=== PATIENT | male | born 1990 | race Hispanic/Latino ===

== ENCOUNTER 2018-07-18 00:44 | Emergency (ER) | payer SELFPAY ==
[2018-07-18] MEDS ORDERED: TETRACAINE 0.5% OU PRN (03:11)
[2018-07-18] MEDS ORDERED: FUL-GLO OP ONE (03:13)
--- NOTE | 2018-07-18 04:31 | Emergency Department Report ---
ED Eye Problem HPI - General Chief complaint: Eye Problems Stated complaint: EYE IRRITATION Time Seen by Provider: 07/18/18 03:51 Source: patient, family Mode of arrival: Ambulatory Limitations: No Limitations - History of Present Illness Initial comments: This 28-year-old male patient here reported that she is having redness swelling and drainage and irritation to the right eye. He said it started at work with metal blind in his right eye. He said he was wearing goggles. He reports his rinse his eye out at work but it did not get any better. He reports that it is irritated and an pain is 2/10 worse with blinking. Minimal foreign body sensation and denies wearing contacts. Denies any fever or chills or any nasal congestion. Denies waking up this morning with eyes matted. Denies any cough, nasal congestion or runny nose. Denies any sore throat. Denies any shortness of breath or chest pain or any blunt trauma to the eyes. 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/ Eye Symptoms: burning, redness, pain, foreign body sensation, other (foreign body sensation with blinking) Severity: mild Severity scale (0 -10): 2 If Pain, Quality: burning (irritated) Consistency: constant Context: injury Associated Symptoms: denies: headache, neck pain, nausea/vomiting, cough, rhinorrhea, fever, shortness of breath Treatments Prior to Arrival: irrigated eye - Related Data Patient Tetanus UTD: Yes (4 years ago) Previous Rx's Medication Instructions Recorded Last Taken Type Gentamicin 0.3% Ophth Soln 2 drops OD Q6H 7 Days #1 bottle 07/18/18 Unknown Rx Ibuprofen [Motrin] 800 mg PO Q8HR PRN #12 tablet 07/18/18 Unknown Rx Allergies Allergy/AdvReac Type Severity Reaction Status Date / Time Penicillins Allergy Anaphylaxis Verified 07/18/18 00:56 pistachio nut Allergy Hives Verified 07/18/18 00:56 ED Review of Systems ROS: Stated complaint: EYE IRRITATION Other details as noted in HPI Constitutional: denies: chills Eyes: eye pain, eye discharge, other (eye redness and irritation after injury at work). denies: vision change ENT: denies: ear pain, throat pain, dental pain, epistaxis, congestion Respiratory: denies: cough, shortness of breath, wheezing Cardiovascular: denies: chest pain, palpitations, edema, syncope Gastrointestinal: denies: nausea, vomiting Musculoskeletal: denies: back pain, arthralgia, myalgia Skin: denies: rash Neurological: denies: headache, vertigo ED Past Medical Hx - Past Medical History Previous Medical History?: No - Surgical History Past Surgical History?: Yes Additional Surgical History: Left Knee surgery when 12 years old - Family History Family history: hypertension - Social History Smoking Status: Current Every Day Smoker Substance Use Type: None - Medications Home Medications: Home Medications Medication Instructions Recorded Confirmed Last Taken Type Gentamicin 0.3% Ophth Soln 2 drops OD Q6H 7 Days #1 bottle 07/18/18 Unknown Rx Ibuprofen [Motrin] 800 mg PO Q8HR PRN #12 tablet 07/18/18 Unknown Rx ED Physical Exam - General Limitations: No Limitations General appearance: alert, in no apparent distress - Head Head exam: Present: atraumatic, normocephalic, normal inspection, other (normal exam) - Eye Eye exam: Present: PERRL, EOMI, conjunctival injection (right), other (mild swelling below right eye lid with mild erythema. No induration or fluctuance patient reports that he was rubbing area). Absent: normal appearance, scleral icterus, nystagmus, periorbital swelling, periorbital tenderness Pupils: Present: normal accommodation, other (right corneal abrasion noted under Wood's lamp examination) - Expanded Eye Exam Expanded Eyelids: Normal Inspection: Left (bilateral) Pupils: Regular, Round: Bilateral, Reactive: Bilateral Sclera/Conjunctival: Normal Inspection: Left, Injection: Right Anterior chamber: Normal Inspection: Bilateral Posterior chamber: Normal Inspection: Bilateral Visual acuity (R) = 20/: 40 Visual acuity (L) = 20/: 30 (20/25 both eyes) With correction: No IOP measured with: other (positive fluorescein uptake) - ENT ENT exam: Present: normal exam, normal orophraynx, mucous membranes moist, TM's normal bilaterally, normal external ear exam - Neck Neck exam: Present: normal inspection, full ROM, other (no C-spine tenderness). Absent: tenderness, lymphadenopathy - Respiratory Respiratory exam: Present: normal lung sounds bilaterally. Absent: respiratory distress, chest wall tenderness - Cardiovascular Cardiovascular Exam: Present: regular rate, normal rhythm, normal heart sounds - GI/Abdominal GI/Abdominal exam: Present: soft, normal bowel sounds ( remaining pretty proactive though she is very). Absent: distended (the), tenderness, rigid ( very much so I get here other than), organomegaly, mass, bruit, pulsatile mass - Extremities Exam Extremities exam: Present: normal inspection, full ROM, normal capillary refill, other (No cce. + 2 pulses in all extremities, no neurovascular compromise). Absent: tenderness, pedal edema, joint swelling - Back Exam Back exam: Present: normal inspection, full ROM, other (ambulates without any difficulties) - Neurological Exam Neurological exam: Present: alert, oriented X3, normal gait - Psychiatric Psychiatric exam: Present: normal affect, normal mood - Skin Skin exam: Present: warm, dry, intact, normal color - Other Other exam information: Ramsay lamp examination Patient with right eye injury and eye examined under Wood lamp. 2 drops of tetracaine ointment instilled into right eye followed by fluorescein stain and right eye examine under Wood lamp and noted very small corneal abrasion to the cornea close to right inner canthus of eye. Positive for a stain uptake. His tetanus shot is up-to-date. I flushed with sterile water and patient's that his eye pain is gone. He tolerated procedure well. ED Course Vital Signs 07/18/18 07/18/18 00:51 00:59 Temperature 99.0 F 99.0 F Pulse Rate 95 H 96 H Respiratory 18 18 Rate Blood Pressure 158/97 158/97 O2 Sat by Pulse 98 98 Oximetry - Reevaluation(s) Reevaluation #1: 07/18/18 05:21 Patient given Motrin 800 mg by mouth which relieved pain. ED Medical Decision Making - Medical Decision Making This is a 28-year-old male came to the hospital because he said that he had injury to his right eye although he was wearing his goggles he thinks he had some metal in his eye. Patient had right eye examined under Ramsay lamp with flu orescein stain and. Please see notes in examination section for detail on procedure. Patient had normal funduscopic exam bilaterally but he has small right corneal abrasion. I discussed my findings along with treatment plan a medication patient. He was given Motrin 800 mg in the ER which helped his pain. Patient is stable and visual acuity done and please see notes for detail. I discussed the patient needs to follow-up with car mechanic in 2-3 days or sooner if his vision decline. He voiced understanding. Patient given prescription for gentamicin ophthalmic ointment and to stay out of work for 2 days and to wear eye patch if he gets sensitivity to light. He voiced understanding. - Differential Diagnosis uveitis, iritis, corneal abrasion, conjunctivitis, viral VS bacterial Critical care attestation.: If time is entered above; I have spent that time in minutes in the direct care of this critically ill patient, excluding procedure time. ED Disposition Clinical Impression: Corneal abrasion, right Qualifiers: Encounter type: initial encounter Qualified Code(s): S05.01XA - Injury of conjunctiva and corneal abrasion without foreign body, right eye, initial encounter Conjunctivitis Qualifiers: Conjunctivitis type: other Laterality: right Qualified Code(s): H10.89 - Other conjunctivitis Disposition: DC- TO HOME OR SELFCARE Is pt being admited?: No Does the pt Need Aspirin: No Condition: Stable Instructions: Corneal Abrasion (ED), Conjunctivitis (ED) Additional Instructions: Please instill eyedrops in right eye every 6 hours as instructed. Follow-up with car mechanic in 2-3 days or sooner if eyesight decline. You can word dark glasses or eye patch to prevent light sensitivity. Take Motrin for pain. Referrals: FERNANDA WORRELL [Primary Care Provider] - 2-3 Days KATHARINA CABRERA MD [Staff Physician] - 2-3 Days Your, primary care physician [Other] - 2-3 Days Forms: Work/School Release Form(ED)
[2018-07-18] MEDS ORDERED: IBUPROFEN PO ONE (04:32)
[2018-07-18 05:37] VITALS: BP 132/74
== END 2018-07-18 05:35 | disposition home or self-care (01) ==
LOC: ED 00:44
DX: S05.01XA Injury of conjunctiva and corneal abrasion without foreign body, right eye, initial encounter (principal); H10.89 Other conjunctivitis; F17.200 Nicotine dependence, unspecified, uncomplicated; X58.XXXA Exposure to other specified factors, initial encounter; Y93.89 Activity, other specified; Y92.89 Other specified places as the place of occurrence of the external cause; Y99.8 Other external cause status

== ENCOUNTER 2018-08-11 11:52 | Emergency (ER) | payer SELFPAY ==
[2018-08-11 12:40] VITALS: BP 160/73
--- NOTE | 2018-08-11 12:43 | Emergency Department Report ---
Blank Doc - Documentation Documentation: Pt c/o right sided facial pain and swelling that began this morning. He states he feels warm but has not taken his temperature. Pt has multiple dental carries. He denies any PMHx. This initial assessment diagnostic orders/clinical plan/treatment (s) is/Are subject change based on patient's health status, clinical progression and re- assessment by fellow clinical providers in the ED. Further treatment and work-up at subsequent clinical providers discretion. Patient/guardians urged not to elope from their condition may be serious if not clinically assessed and managed. Initial order include: rapid strep
[2018-08-11] MEDS ORDERED: MOTRIN PO ONE (12:46)
--- NOTE | 2018-08-11 13:04 | Emergency Department Report ---
ED General Adult HPI - General Chief complaint: Pain General Stated complaint: RT SIDE PAIN Time Seen by Provider: 08/11/18 12:39 Source: patient Mode of arrival: Ambulatory Limitations: No Limitations - History of Present Illness Initial comments: Patient is a 28-year-old gentleman who is complaining of right lower jaw pain. Swelling is present for the last 2 days. The patient has a history of very poor dentition. Persistent pain is 8 out of 10 in severity and is throbbing and aching. She denies any fevers chills nausea vomiting at this time Severity scale (0 -10): 10 - Related Data Previous Rx's Medication Instructions Recorded Last Taken Type Gentamicin 0.3% Ophth Soln 2 drops OD Q6H 7 Days #1 bottle 07/18/18 Unknown Rx Ibuprofen [Motrin] 800 mg PO Q8HR PRN #12 tablet 07/18/18 Unknown Rx Allergies Allergy/AdvReac Type Severity Reaction Status Date / Time Penicillins Allergy Anaphylaxis Verified 08/11/18 12:38 pistachio nut Allergy Hives Verified 08/11/18 12:38 ED Review of Systems ROS: Stated complaint: RT SIDE PAIN Other details as noted in HPI Comment: All other systems reviewed and negative ED Past Medical Hx - Past Medical History Previous Medical History?: No - Surgical History Past Surgical History?: No Additional Surgical History: Left Knee surgery when 12 years old - Social History Smoking Status: Current Every Day Smoker - Medications Home Medications: Home Medications Medication Instructions Recorded Confirmed Last Taken Type Gentamicin 0.3% Ophth Soln 2 drops OD Q6H 7 Days #1 bottle 07/18/18 Unknown Rx Ibuprofen [Motrin] 800 mg PO Q8HR PRN #12 tablet 07/18/18 Unknown Rx ED Physical Exam - General Limitations: No Limitations General appearance: alert, in no apparent distress - Head Head exam: Present: atraumatic, normocephalic - Eye Eye exam: Present: normal appearance, PERRL, EOMI - ENT ENT exam: Present: mucous membranes moist, other (patient has very poor dentition but also has a very necrotic tooth #30. Patient has some firmness to the jaw just below this tooth consistent with a dental abscess and facial cellulitis.) - Neck Neck exam: Present: normal inspection - Respiratory Respiratory exam: Present: normal lung sounds bilaterally. Absent: respiratory distress - Cardiovascular Cardiovascular Exam: Present: regular rate, normal rhythm. Absent: systolic murmur, diastolic murmur, rubs, gallop - GI/Abdominal GI/Abdominal exam: Present: soft, normal bowel sounds - Rectal Rectal exam: Present: deferred - Extremities Exam Extremities exam: Present: normal inspection - Back Exam Back exam: Present: normal inspection - Neurological Exam Neurological exam: Present: alert, oriented X3 - Psychiatric Psychiatric exam: Present: normal affect, normal mood - Skin Skin exam: Present: warm, dry, intact, normal color. Absent: rash ED Course Vital Signs 08/11/18 12:38 Temperature 98.2 F Pulse Rate 94 H Respiratory 18 Rate Blood Pressure 160/73 O2 Sat by Pulse 97 Oximetry ED Medical Decision Making - Medical Decision Making She started on antibiotics will be discharged home. Critical care attestation.: If time is entered above; I have spent that time in minutes in the direct care of this critically ill patient, excluding procedure time. ED Disposition Clinical Impression: Dental abscess, Facial cellulitis Disposition: DC- TO HOME OR SELFCARE Is pt being admited?: No Does the pt Need Aspirin: No Condition: Stable Instructions: Dental Abscess (ED) Referrals: DONTE LOONEY MD [Primary Care Provider] - 3-5 Days Time of Disposition: 13:04
== END 2018-08-11 13:28 | disposition home or self-care (01) ==
LOC: ED 11:52
DX: K04.7 Periapical abscess without sinus (principal); L03.211 Cellulitis of face; F17.200 Nicotine dependence, unspecified, uncomplicated; Z88.1 Allergy status to other antibiotic agents; Z88.0 Allergy status to penicillin; Z91.018 Allergy to other foods
CPT/HCPCS: 87116; 87430; 99283

== ENCOUNTER 2018-08-12 02:41 | Emergency (ER) | payer SELFPAY ==
[2018-08-12] MEDS ORDERED: BENADRYL PO ONE ×2 (03:55→03:59)
[2018-08-12] MEDS ORDERED: PEPCID ONE (03:55)
[2018-08-12] MEDS ORDERED: DECADRON ONE (03:56)
[2018-08-12] MEDS ORDERED: PEPCID PO ONE (03:59)
[2018-08-12] MEDS ORDERED: DECADRON IM ONE (04:00)
--- NOTE | 2018-08-12 05:10 | Emergency Department Report ---
HPI - General Chief Complaint: Allergic Reaction Time Seen by Provider: 08/12/18 05:05 - HPI HPI: pt is a 28 y/o white male who presents for allergic reaction to clindmycin, states he started clindamycin for dental abscess rx by pcp yesterday at approx 3pm and at approx 1030 pm he started to itching and develop hives which prompted him to report to ed tonight, there are no owther symptoms no cp no sob no wheezing no cp no n/v no dizziness or light headedness ED Past Medical Hx - Past Medical History Hx Hypertension: Yes Additional medical history: OBESITY - Surgical History Additional Surgical History: Left Knee surgery when 12 years old - Social History Smoking Status: Current Every Day Smoker Substance Use Type: None - Medications Home Medications: Home Medications Medication Instructions Recorded Confirmed Last Taken Type Gentamicin 0.3% Ophth Soln 2 drops OD Q6H 7 Days #1 bottle 07/18/18 Unknown Rx Ibuprofen [Motrin] 800 mg PO Q8HR PRN #12 tablet 07/18/18 Unknown Rx Clindamycin [Clindamycin CAP] 300 mg PO Q8H 7 Days cap 08/11/18 Unknown Rx HYDROcodone/APAP 5-325 [[place] 1 each PO Q4HR PRN #12 tablet 08/11/18 Unknown Rx 5/325] Ibuprofen [Motrin] 800 mg PO Q8HR PRN #20 tablet 08/11/18 Unknown Rx EPINEPHrine [Epipen 2-Junior] 0.3 mg IJ PRN PRN #1 auto.injct 08/12/18 Unknown Rx Famotidine [Pepcid] 20 mg PO BID 7 Days #14 tablet 08/12/18 Unknown Rx Sulfamethoxazole/Trimethoprim 1 each PO BID 10 Days #20 tablet 08/12/18 Unknown Rx [Bactrim DS TAB] diphenhydrAMINE [Benadryl CAP] 25 mg PO Q8H 7 Days #21 capsule 08/12/18 Unknown Rx predniSONE [Deltasone] 40 mg PO QDAY 5 Days #10 tab 08/12/18 Unknown Rx ED Review of Systems ROS: Stated complaint: ALLERGIC REACTION Other details as noted in HPI Constitutional: denies: chills, fever, weakness Eyes: denies: eye pain, eye discharge, vision change ENT: denies: ear pain, throat pain Respiratory: denies: cough, shortness of breath, wheezing Cardiovascular: denies: chest pain, palpitations Endocrine: no symptoms reported Gastrointestinal: denies: abdominal pain, nausea, diarrhea Genitourinary: denies: urgency, dysuria Musculoskeletal: denies: back pain, joint swelling, arthralgia Skin: rash (hives, pruritis), pruritus Neurological: denies: headache, weakness, paresthesias Psychiatric: denies: anxiety, depression Hematological/Lymphatic: denies: easy bleeding, easy bruising Physical Exam - Physical Exam Vital Signs: Vital Signs 08/12/18 03:45 Temperature 98.9 F Pulse Rate 94 H Respiratory 20 Rate Blood Pressure 183/88 General: pt appears well nontoxic no resp distress no hive no stridor no wheezing Physical Exam: ent: airway is patent no lesions no exudate no swelling no stridor, lungs clear bilat no wheezing, no accessory muscle use, no rash, no erythema ED Course Vital Signs 08/12/18 03:45 Temperature 98.9 F Pulse Rate 94 H Respiratory 20 Rate Blood Pressure 183/88 ED Medical Decision Making - Medical Decision Making this is an allergic reaction to medication, clindamycin, symptoms have resolve there is no rash, hives, sob, n/v no cp no n/v , this not redmans, plan stop clindmycin , rx: bactrim DS, benadry, pepcid, prednisone pt will follow up with pcp today, and dentist as scheduled, pt verbalized agreement and understanding of same, pt given epipen teaching verbalized understanding of same. Critical care attestation.: If time is entered above; I have spent that time in minutes in the direct care of this critically ill patient, excluding procedure time. ED Disposition Clinical Impression: Allergic reaction caused by a drug Qualifiers: Encounter type: initial encounter Qualified Code(s): T78.40XA - Allergy, unspecified, initial encounter Disposition: TO HOME OR SELFCARE Is pt being admited?: No Does the pt Need Aspirin: No Condition: Stable Instructions: Allergies (ED), Antibiotic Medication Allergy (ED) Prescriptions: diphenhydrAMINE [Benadryl CAP] 25 mg PO Q8H 7 Days #21 capsule EPINEPHrine [Epipen 2-Junior] 0.3 mg IJ PRN PRN #1 auto.injct PRN Reason: severe allergic reaction Famotidine [Pepcid] 20 mg PO BID 7 Days #14 tablet predniSONE [Deltasone] 40 mg PO QDAY 5 Days #10 tab Sulfamethoxazole/Trimethoprim [Bactrim DS TAB] 1 each PO BID 10 Days #20 tablet Referrals: DONTE LOONEY MD [Primary Care Provider] - 3-5 Days Forms: Work/School Release Form(ED) Time of Disposition: 05:30
[2018-08-12 05:45] VITALS: BP 134/71
== END 2018-08-12 05:45 | disposition home or self-care (01) ==
LOC: ED 02:41
DX: L50.9 Urticaria, unspecified (principal); T36.8X5A Adverse effect of other systemic antibiotics, initial encounter; I10 Essential (primary) hypertension; F17.200 Nicotine dependence, unspecified, uncomplicated; E66.9 Obesity, unspecified; Z88.1 Allergy status to other antibiotic agents; Z88.0 Allergy status to penicillin; Z91.018 Allergy to other foods; Y92.89 Other specified places as the place of occurrence of the external cause
CPT/HCPCS: 96372; 99282; J1100